=== PATIENT | male | born 1950 | race Caucasian/White ===

== ENCOUNTER → 2016-09-20 | Day surgery (SDC) | payer OTHER ==
[~2016-09-20] MED LIST: BUPIVACAINE/EPINEPHRINE 0.25% PF 30 ML VIAL ONE; KETOROLAC TROMETHAMINE 30 MG/ML (IVP) VIAL IV PUSH ONE; LACTATED RINGER'S 1000 ML INJ 1,000 ML ONE; MEPERIDINE HCL 25 MG/ML VIAL ONE; MIDAZOLAM HCL 2 MG/2 ML VIAL ONE; ONDANSETRON HCL 4 MG/2 ML VIAL IV PUSH ONE; PROPOFOL 200 MG/20 ML AMP IV ONE; ceFAZolin 2 GM PREMIX 50 ML ONE
--- NOTE | 2016-09-24 06:35 | TN ---
cc: STEFAN FREDERICK MD DATE OF SURGERY 09/20/2016 PREOPERATIVE DIAGNOSIS Left inguinal hernia. POSTOPERATIVE DIAGNOSIS Bilateral direct inguinal hernias. PROCEDURE PERFORMED Laparoscopic bilateral inguinal hernia repair with mesh, TEPP. SURGEON Dr. Stefan Frederick [employer]K ANALYSIS MANAGER Mariah Ng, necessary to assist due to complex nature of laparoscopic case. Mariah was needed to his used camera control and assisted with retraction. ANESTHESIA GETA. IV FLUIDS 950 cc. ESTIMATED BLOOD LOSS 5 cc. DRAINS None. COMPLICATIONS None. WOUND CLASSIFICATION Clean. FINDINGS Bilateral direct inguinal hernias. SPECIMEN None. INDICATION The patient was seen in the office for evaluation of a left palpable inguinal hernia. The patient had very minimal symptoms on the right but no obvious palpable abnormality at the time. Discussion was made for laparoscopic inguinal hernia repair to the left side and exploration and possible right-sided repair. This was discussed with the patient in detail. DETAILS OF PROCEDURE The patient was taken to the operating suite, placed in supine position. He was prepped and draped in the usual sterile fashion after induction of general endotracheal anesthesia. Brief time-out done stating correct patient, procedure and surgical site. We were all in agreement with this. Attention first directed to the umbilicus where local anesthetic was injected. The incision was made inferiorly with a 15 blade. Further dissection with hemostat and Army-Glide. This was done down to the anterior rectus fascia. Once this was identified, a bayron incision was made on the anterior portion of the fascia to the left of the midline. Hemostat was used to dissect beneath the rectus muscle distal and anterior to the peritoneum. S-retractor was used for assistance in the balloon dissector placement. The dissector was placed beneath the rectus and anterior to the peritoneum. This was directed down to the pubic symphysis. The balloon was then insufflated with hand pump x 30 pounds. This was done under direct visualization. There was noted good dissection of the preperitoneal space. The balloon was removed. A stay suture was placed on the anterior rectus fascia of 0 Vicryl. The Andrew trocar was then placed with the balloon port inflated. This was done under direct visualization. The preperitoneal space was inflated 11-mm pneumoperitoneum. Two other ports placed, 5-mm, one suprapubic followed by one in between this. [place] and DeBakeys were used to further dissect the preperitoneal space. The cord structures were dissected out. There was noted to be a direct inguinal hernia. The sac was reduced. The peritoneum was dissected back off the inguinal structures. The vas and gonadal vessels were identified and dissected free. Once the hernia was reduced in the peritoneal cavity, a posterior window was created underneath the cord structures. We ensured good identification of the structures and adequately landing zone done for placement of mesh. Next an Atrium 6 x 6 mesh was obtained and cut to appropriate size. The mesh was then introduced through the Andrew trocar. [place] and De[place]akey retractors graspers were used to place the mesh in place and adequately recreate the internal ring. Tackers were then placed for better adhesions and approximation. Once we were satisfied with this, the second piece of the mesh was inserted and placed superior for reinforcements. This was tacked to the previous mesh. Next, exploration was continued on the right side. The balloon had dissected significant amount of the preperitoneal space; however, the graspers were necessary to further delineate structures and dissect the sac and this was done in a similar fashion to the left side. The right side was noted to have also a direct inguinal hernia. This hernia was a little bit smaller than the left hernia. Then decision was made to repair this and placed the mesh in steps similar in fashion to the left side. After creating an adequately landing zone and identifying all of structures and creating an posterior window to the cord structures, the mesh was inserted in the preperitoneal space. Once adequately placed, the tacker was used to secure the mesh in place. The second mesh was then placed over top of this one. This was tacked in place. Next, local anesthetic was injected after we were satisfied completely with our repair. The preperitoneal space was then desufflated. Trocars were removed. The anterior rectus fascia was closed with a [id number] 0 Vicryl. Next, the subcuticular sutures were placed, 4-0 Monocryls, followed by Mastisol and Steri-Strips. All lap and instrument counts were correct. The patient tolerated the procedure well. There is no intraoperative complication. The patient was extubated and taken stable to the PACU. MD KENDELL Sprague/RONNIE /10:56 PM /6:20 AM
== END | disposition home or self-care (01) ==
LOC: ESDC 08:29
PROVIDERS: ATTEND Surgery
DX: K40.20 Bilateral inguinal hernia, without obstruction or gangrene, not specified as recurrent (principal)
CPT/HCPCS: 00840; 49650; C1727; C1781; J0690; J1885; J2175; J2250; J2405; J3010; J7120